=== PATIENT | female | born 1960 | race Caucasian/White ===

== ENCOUNTER 2017-06-01 11:15 | Inpatient (IN) | payer OTHER ==
[2017-05-25 11:55] VITALS: BMI 29.7
[~2017-06-01 11:15] MED LIST: oxyCODONE HCL 10 MG SUSTAINED ACTING TABLET PO ONE
[2017-06-01] MEDS ORDERED: fentaNYL CITRATE 250 MCG/5 ML VIAL ONE (13:49)
[2017-06-01] MEDS ORDERED: ONDANSETRON 4 MG/2 ML VIAL ONE ×2 (13:50→17:56)
[2017-06-01] MEDS ORDERED: MIDAZOLAM HCL 2 MG/2 ML SINGLE DOSE VIAL ONE ×2 (13:50→14:05)
[2017-06-01] MEDS ORDERED: LIDOCAINE HCL/PF 2% SDV 5ML VIAL ONE (13:50)
[2017-06-01] MEDS ORDERED: SUCCINYLCHOLINE CHLORIDE 200 MG/10 ML VIAL ONE (13:50)
[2017-06-01] MEDS ORDERED: DEXAMETHASONE SOD PHOSPHATE 4 MG/1 ML VIAL ONE (13:50)
[2017-06-01] MEDS ORDERED: PROPOFOL 20 ML ONE ×3 (13:50)
[2017-06-01] MEDS ORDERED: BUPIVACAINE HCL/PF 2.5 MG/ML - 30 ML VIAL IJ ONE (14:05)
[2017-06-01] MEDS ORDERED: DEXAMETHASONE SOD PHOSPHATE/PF 10 MG/ML SDV ONE (14:05)
--- NOTE | 2017-06-01 14:44 | HP ---
Admitting History and Physical - Admission History of Present Illness: The patient is a 56 yo female who presents to day with Dr. Mcadams for an anterior cervcial fusion. She is having upper shoulder pain with numbness/ tingling in her right hand and a little in her left. She describes weakness with finger motor movement, easily dropping items. No fever or CP/SOB. Her surgery was was set for an earlier date but then she had issues with high blood pressure. She was started on oral hypertensive medications and her values have improved. She denies any syncope, blurry vision, headaches. 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 No: Deep Vein Thrombosis Pulmonary: No: Asthma, Sleep Apnea Gastrointestinal: Yes: GERD Renal/: No: Hematuria, Renal Calculi Endocrine: No: Diabetes Mellitus - Past Surgical History Past Surgical History: Yes: Hysterectomy (lap band) Additional Past Surgical History: knee surgery anterior cervical fusion - Advance Directives Advance Directives: Yes: Health Care Proxy - Smoking History Smoking history: Former smoker Have you smoked in the past 12 months: No If you are a former smoker, when did you quit?: over year - Alcohol/Substance Use Hx Alcohol Use: Yes (social) Home Medications - Allergies Allergies/Adverse Reactions: Allergies Allergy/AdvReac Type Severity Reaction Status Date / Time Penicillins Allergy Rash Verified 06/01/17 12:12 - Home Medications Home Medications: Ambulatory Orders Acetaminophen/Diphenhydramine [Tylenol Pm Ex-Strength Caplet] 1 each PO HS PRN 05/25/17 Amlodipine Besylate [Norvasc -] 10 mg PO DAILY 05/25/17 Cholecalciferol (Vitamin D3) [Vitamin D3] 5,000 unit PO DAILY 05/25/17 Losartan Potassium [Cozaar -] 50 mg PO DAILY 05/25/17 Review of Systems - Review of Systems Constitutional: denies: Chills, Fever Neck: reports: Other (tenderness to upper shoulders). denies: Decreased ROM Cardiovascular: denies: Chest Pain, Palpitations, Shortness of Breath Respiratory: denies: Cough, Snoring Gastrointestinal: denies: Abdominal Pain, Constipation, Nausea Genitourinary: denies: Burning, Dysuria Musculoskeletal: denies: Decreased ROM, Joint Swelling Integumentary: reports: Bruising Neurological: reports: Weakness (upper exremitites). denies: Dizziness, Headache, Syncope Hematology/Lymphatic: reports: Easily Bruised. denies: Excessive Bleeding Physical Examination Vital Signs: Vital Signs Temperature 98.2 F 06/01/17 13:06 Pulse Rate 62 06/01/17 13:06 Respiratory Rate 17 06/01/17 13:06 Blood Pressure 145/83 06/01/17 13:06 O2 Sat by Pulse Oximetry (%) 99 06/01/17 12:33 Constitutional: Yes: Well Nourished Eyes: Yes: Conjunctiva Clear. No: Sclera Icterus HENT: Yes: WNL, Atraumatic, Normocephalic Neck: Yes: WNL, Supple, Trachea Midline Cardiovascular: Yes: WNL, Regular Rate and Rhythm Respiratory: Yes: WNL, Regular, CTA Bilaterally Gastrointestinal: Yes: Normal Bowel Sounds, Soft Renal/: No: CVA Tenderness - Left, CVA Tenderness - Right Extremities: No: Calf Tenderness Edema: No Peripheral Pulses WNL: Yes Peripheral Pulses: Left Doralis Pedis: 2+, Right Dorsalis Pedis: 2+ Wound/Incision: Yes: Clean/Dry, Well Approximated Neurological: Yes: WNL, Alert, Oriented ...Motor Strength: LUE, LLE, RLE Psychiatric: Yes: WNL, Alert, Oriented Assessment/Plan 56 yo female with a history of anterior cervcial fusion C5/C6 and C6/C7, now with C4/5 disc herniation Plan for elective repair of her C4/5 disc herniation, anterior cervical fusion at this level She remains npo for todays procedure DVT with SCDs/early ambulation IV abx Kefzol x3 doses IV steriods for post-operative swelling Diet as tolerated Pain managment with oral medications D/w Dr. Mcadams
[2017-06-01] MEDS ORDERED: THROMBIN (BOVINE) 5,000 UNIT VIAL TP ONE ×2 (14:54→16:15)
[2017-06-01] MEDS ORDERED: LIDOCAINE 1%/EPI 1:100000 (20 ML MULTI DOSE VIAL) ONE (14:54)
[2017-06-01] MEDS ORDERED: ACETAMINOPHEN INJECTION 100 ML IVPB ONE (15:07)
[2017-06-01] MEDS ORDERED: LIDOCAINE 1%/EPI 1:100000 (50 ML MULTI DOSE VIAL) INF ONE (16:15)
[2017-06-01] MEDS ORDERED: GELATIN SPONGE,ABSORBABLE 1 GM PACKET TP ONE (16:15)
--- NOTE | 2017-06-01 17:16 | OP ---
Operative Note - Note: Operative Date: 06/01/17 Operation: cervical disc herniation C4/5 Surgeon: Rod Mcadams Ux Consultant: Marley Jackson Anesthesiologist/SNOW RANGER: Willis Gonzalez Anesthesia: General Estimated Blood Loss (mls): 20 Fluid Volume Replaced (mls): 1,000 Operative Report Dictated: Yes
[2017-06-01] MEDS ORDERED: oxyCODONE HCL 5 MG TABLET PO PRN ×2 (17:18)
[2017-06-01] MEDS ORDERED: ONDANSETRON 4 MG/2 ML VIAL IVPUSH PRN ×2 (17:18→17:35)
--- NOTE | 2017-06-01 17:18 | SURG ---
Surgery [employer] Haul Truck Driver Note Long Haul Truck Driver: Marley Jackson PA-C Date of Service: 06/01/17 Diagnosis: cervical disc herniation C4/5 Procedure: anterior cervcial fusion c4/5 I was present for the entirety of the operative procedure. For further detail, please refer to operative report. Visit type - Case Type Case Type: Scheduled Admission - Emergency Emergency Visit: Yes ED Registration Date: 06/01/17 Care time: The patient presented to the Emergency Department on the above date and was hospitalized for further evaluation of their emergent condition. - New patient This patient is new to me today: Yes Date on this admission: 06/01/17
[2017-06-01] MEDS ORDERED: LACTATED RINGERS SOLUTION 1,000 ML IV SCH ×2 (17:30→17:45)
[2017-06-01] MEDS ORDERED: PROMETHAZINE HCL 25 MG/1 ML VIAL IVPUSH PRN (17:35)
[2017-06-01] MEDS ORDERED: ACETAMINOPHEN 325 MG TABLET (FP) PO SCH (20:00)
[2017-06-01] MEDS: traMADol HCL 50 MG TABLET PO SCH (20:17)
[2017-06-01] MEDS: amLODIPine BESYLATE 10 MG TABLET (FP) PO SCH (22:17)
[2017-06-01] MEDS: diazePAM 2 MG TABLET PO SCH (22:17)
[2017-06-01] MEDS: ACETAMINOPHEN 325 MG TABLET (FP) PO SCH (22:18)
[2017-06-01 22:38] VITALS: PULSE 67
[2017-06-01] MEDS: CEFAZOLIN 1 GM/D5W 1 GM/50 ML BAG IVPB SCH (23:00)
[2017-06-01] MEDS: DEXAMETHASONE SOD PHOSPHATE 20 MG/5 ML VIAL IVPB SCH (23:05)
[2017-06-02] MEDS: ACETAMINOPHEN 325 MG TABLET (FP) PO SCH ×2 (03:00→09:00)
[2017-06-02] MEDS: traMADol HCL 50 MG TABLET PO SCH ×2 (03:00→08:00)
[2017-06-02] MEDS: diazePAM 2 MG TABLET PO SCH (06:03)
[2017-06-02] MEDS: DEXAMETHASONE SOD PHOSPHATE 20 MG/5 ML VIAL IVPB SCH (06:09)
[2017-06-02] MEDS: CEFAZOLIN 1 GM/D5W 1 GM/50 ML BAG IVPB SCH (06:09)
[2017-06-02 06:33] VITALS: BP 152/84; TEMP 98.2
[2017-06-02] MEDS ORDERED: DEXAMETHASONE SOD PHOSPHATE 4 MG/1 ML VIAL IVPB SCH (08:00)
[2017-06-02] MEDS ORDERED: LOSARTAN POTASSIUM 50 MG TABLET (FP) PO SCH (10:00)
[2017-06-02] MEDS: amLODIPine BESYLATE 10 MG TABLET (FP) PO SCH (10:10)
--- NOTE | 2017-06-02 10:21 | DS ---
Physical Exam: SUBJECTIVE: Patient seen and examined this am. She has complaints of Right upper /shoulder pain. No difficulty with swallowing, is coughing up a bit(no blood). No CP/SOB. OBJECTIVE: Vital Signs Temperature 98.2 F 06/02/17 06:32 Pulse Rate 67 06/02/17 06:32 Respiratory Rate 20 06/02/17 06:32 Blood Pressure 152/84 06/02/17 06:32 O2 Sat by Pulse Oximetry (%) 98 06/02/17 06:32 PHYSICAL EXAM GENERAL: The patient is awake, alert, and fully oriented, in no acute distress. NECK: Trachea midline, supple. No masses or ecchymosis. Dressing c/d/i. Soft collar in place. LUNGS: Breath sounds equal, clear to auscultation bilaterally, no wheezes, no crackles, no accessory muscle use. HEART: Regular rate and rhythm. EXTREMITIES: 2+ pulses, warm, well-perfused, no edema. SCDs in place. NEUROLOGICAL: Normal speech, gait not observed. Shoulder shrug intact b/l. flexion/extension equal b/l. 5/5 dorsi/plantar flexion. PSYCH: Normal mood, normal affect. LABS HOSPITAL COURSE: Date of Admission:06/01/17 Date of Discharge: 06/02/17 The patient was admitted to the Med-Surg Unit after an elective repair of their Cervical C4/5 disc herniation. Now, s/p anterior cervcial fusion of C4/5. The day of surgery, the patient ambulated the hallways with assistance. Narcotic and non-narcotic pain management control was achieved with an oral and IV approach. An xray was obtained and confirmed hardware placement at C4/5, no fractures or dislocations. Bobbi-operative IV ABX were administered. DVT prophylaxis was achieved with SCDs and early ambulation. The patient ambulated with Physical Therapy and no services were recommended upon discharge. Narcotic scripts and or muscle relaxants were checked with [facility] ALARM FIELD TECHNICIAN prior to escibe. The discharge instructions and an oral pain management plan were reviewed with the patient. All questions answered. Above plan discussed with Dr. Mcadams and agreed. Minutes to complete discharge: 20 <Marley Jackson - Last Filed: 06/02/17 13:48> Physical Exam: SUBJECTIVE: Patient seen and examined OBJECTIVE: Vital Signs Temperature 98.2 F 06/02/17 06:32 Pulse Rate 67 06/02/17 06:32 Respiratory Rate 20 06/02/17 10:00 Blood Pressure 152/84 06/02/17 06:32 O2 Sat by Pulse Oximetry (%) 98 06/02/17 10:00 PHYSICAL EXAM GENERAL: The patient is awake, alert, and fully oriented, in no acute distress. HEAD: Normal with no signs of trauma. EYES: PERRL, extraocular movements intact, sclera anicteric, conjunctiva clear. ENT: Ears normal, nares patent, oropharynx clear without exudates, moist mucous membranes. NECK: Trachea midline, full range of motion, supple. LUNGS: Breath sounds equal, clear to auscultation bilaterally, no wheezes, no crackles, no accessory muscle use. HEART: Regular rate and rhythm, S1, S2 without murmur, rub or gallop. ABDOMEN: Soft, nontender, nondistended, normoactive bowel sounds, no guarding, no rebound, no hepatosplenomegaly, no masses. EXTREMITIES: 2+ pulses, warm, well-perfused, no edema. NEUROLOGICAL: Cranial nerves II through XII grossly intact. Normal speech, gait not observed. PSYCH: Normal mood, normal affect. SKIN: Warm, dry, normal turgor, no rashes or lesions noted. LABS HOSPITAL COURSE: Date of Admission:06/01/17 Date of Discharge: 06/08/17 The patient was admitted to the Med-Surg Unit after an elective repair of their (problem). Now, s/p ( procedure ). The day of surgery, the patient ambulated the hallways with assistance. Narcotic and non-narcotic pain management control was achieved with an oral and IV approach. POD #1, the surgical drain was removed fully intact and without incident. An xray was obtained and confirmed hardware placement at (level of ), no fractures or dislocations. Bobbi-operative IV ABX were administered. DVT prophylaxis was achieved with SCDs and early ambulation. The patient ambulated with Physical Therapy and no services were recommended upon discharge. Narcotic scripts and or muscle relaxants were checked with [facility] ALARM FIELD TECHNICIAN prior to escibe. The discharge instructions and an oral pain management plan were reviewed with the patient. All questions answered. Above plan discussed with Dr. Mcadams and agreed. Patient seen and examined Agree with above <Rod Mcadams - Last Filed: 06/08/17 15:26> Visit type - Case Type Case Type: Scheduled Admission - Emergency Emergency Visit: No - New patient This patient is new to me today: No <Marley Jackson - Last Filed: 06/02/17 13:48>
--- NOTE | 2017-06-02 10:43 | PN ---
Progress Note (short form) - Note Progress Note: 56F POD1 s/p ACDF C4-5 under GA-ETT. Pt states that pain is well controlled, reports no anesthetic complications. AVSS. Sensory and motor function at baseline. Continue current regimen.
--- NOTE | 2017-06-05 12:09 | PATH ---
Surgical Pathology Report Patient Name: ZAHRA DU Med. Rec. #: [id number] /Age/Gender: 1960 (Age: 56) / F Account: [id number] Location: [facility] MED-SURG Taken: 06/01/2017 Received: 06/01/2017 Reported: 06/05/2017 Physicians: Rod Mcadams M.D. Specimen(s) Received C4-5 DISC Clinical History Cervical stenosis Final Diagnosis INTERVERTEBRAL DISC, C4-5, PARTIAL EXCISION: FIBROCARTILAGINOUS TISSUE CONSISTENT WITH PORTION OF INTERVERTEBRAL DISC. Electronically Signed Tye West M.D. Gross Description Received in formalin labeled "C4-5 disc," is a 1.2 x 0.7 x 0.2 cm aggregate of thorpe fragments of fibrocartilaginous tissue. The specimen is entirely submitted in one cassette. /06/02/201706/02/2017
--- NOTE | 2017-06-08 13:50 | OP ---
DATE OF OPERATION: 06/01/2017 PREOPERATIVE DIAGNOSIS: Cervical stenosis C4-5. POSTOPERATIVE DIAGNOSES: Cervical stenosis C4-5. PROCEDURE PERFORMED: 1. Anterior cervical discectomy and fusion, C4-5 2. Placement of instrumentation, C4-5. SURGEON: Rod Mcadams MD GRANITE COUNTERTOP INSTALLER: GRADY Barry. ESTIMATED BLOOD LOSS: 50 mL. INTRAVENOUS FLUIDS: Per anesthesia. COMPLICATIONS: None. DISPOSITION: The patient was brought to the PACU in stable condition. INDICATIONS FOR SURGERY: The patient is a 56-year-old female who has been suffering from pain from her neck down her arms. X-rays and MRI were completed, which noted she had cervical stenosis at C4-5. She has gone through an exhaustive course of treatment for this which included medications, physical therapy, as well as injections. Unfortunately, her pain continued to persist in spite of all this. At this point, the risks benefits, and alternatives were discussed and the patient consented to surgery. DESCRIPTION OF PROCEDURE: The patient was brought to the operating room by the anesthesia staff. After appropriate patient identification was performed, general anesthesia was given. SCDs were placed on the patient. Neuromonitoring leads were attached. The patient was placed supine on the OR bed with her arms tucked in at her side. A shoulder roll was placed underneath her shoulder to extend her neck to the point that she could tolerate it in the preoperative holding area. A needle was taped onto her neck to hailey off the C4-5 level and an x-ray was taken to confirm this was correct. The needle was removed and 10 mL of lidocaine with epinephrine was injected into her neck at this time. Her neck was prepped and draped in a sterile manner. At this point, a time-out was completed. An incision was made on the left side of her neck. Dissection was carried down to the platysma. The platysma was cut in line with the skin incision. Next, the interval between the sternocleidomastoid and strap muscles was developed. Next, the interval between the carotid sheath and tracheaesophagus was developed. Peanuts were used to elevate it off the prevertebral fascia. The needle was taped in place into the C4-5 disk and an x-ray was taken to confirm this was correct. The needle was removed and the longus colli muscles were elevated off. Retractor blades were placed in and Hammond pins were placed into the body of C4 and C5. A knife was used to incise the disk. Distraction was applied. Using a series of pituitaries, Kerrisons, and curettes a diskectomy was completed. The endplates were decorticated at this time. A cage filled with bone graft was placed in. Distraction was removed. A screw was placed into the body of C4 and the screw was placed into the body of C5. The Hammond pins were removed. AP and lateral x-rays confirmed the instrumentation to be in good position. Final tightening was performed. The platysma was closed with 2-0 Vicryl suture. The skin was closed with 3-0 Monocryl suture. Dermabond was applied. Steri-Strips were applied. A sterile dressing was applied. The patient was placed supine on the bed, extubated in the OR, and brought to the PACU in stable condition. Mehdi REGAN/[id number]
== END 2017-06-02 13:17 | disposition home or self-care (01) | DRG 321 ==
LOC: EDSTATUS 11:15 → FM/S 11:42
PROVIDERS: ADMIT Orthopaedic Surgery Orthopaedic Surgery of the Spine; ATTEND Orthopaedic Surgery Orthopaedic Surgery of the Spine
PROC: 0RG10A0 Fusion of Cervical Vertebral Joint with Interbody Fusion Device, Anterior Approach, Anterior Column, Open Approach (ICD-10-PCS; principal; 2017-06-01 16:07)
DX: M48.02 Spinal stenosis, cervical region (principal); K21.9 Gastro-esophageal reflux disease without esophagitis; M50.31 Other cervical disc degeneration, high cervical region; I10 Essential (primary) hypertension; Z87.891 Personal history of nicotine dependence; Z98.84 Bariatric surgery status
CPT/HCPCS: 72050-TC-FY; 76001-TC-FY; 88304-TC; 94010; 94760; 97116-GP; 97161-GP; J0131